=== PATIENT | female | born 1990 | race Two or more races ===

== ENCOUNTER 2024-02-17 08:31 | Outpatient (RCR) | payer MEDICAID, SELFPAY ==
[2024-01-23 08:37] VITALS: BP 128/84; PULSE 65; RESP 18; TEMP 36.7; O2SAT 98; BMI 32.5
[2024-01-23] MEDS: IMMUNE GLOB GA CA IV (09:45)
[2024-01-23] MEDS: [UNRECOGNIZED DRUG - OTHER] IV (09:45)
[2024-01-23] MEDS: ACETAMINOPHEN 325 MG TABLET 650 MG PO (09:51)
[2024-01-23 13:44] VITALS: BP 146/95; PULSE 85; RESP 16; TEMP 36.2; O2SAT 98
[2024-02-17 09:03] VITALS: BMI 32.4
[2024-02-17 09:07] VITALS: BP 138/72; PULSE 67; RESP 18; TEMP 36.3; O2SAT 99
[2024-02-17] MEDS: ACETAMINOPHEN 325 MG TABLET 650 MG PO (09:17)
[2024-02-17] MEDS: [UNRECOGNIZED DRUG - OTHER] IV (09:18)
[2024-02-17] MEDS: IMMUNE GLOB GA CA IV (09:18)
[2024-02-17 14:20] VITALS: BP 119/62; PULSE 68; RESP 18; TEMP 36.6; O2SAT 99
== END 2024-02-21 23:59 | disposition home or self-care (01) ==
LOC: SFLEX 08:31
PROVIDERS: PCP Family Medicine; Referring Provider Family Medicine; Visit Provider Family Medicine
PROC: (CPT 96365; principal; 2024-01-23 08:00)
DX: D89.3 Immune reconstitution syndrome (principal); E55.9 Vitamin D deficiency, unspecified
CPT/HCPCS: 96365; 96366; J1568; A9270

== ENCOUNTER 2024-03-09 07:50 | Outpatient (RCR) | payer MEDICAID, SELFPAY ==
[2024-03-09 07:50] VITALS: BP 137/85; PULSE 69; RESP 18; TEMP 36.2; O2SAT 100; BMI 32.3
[2024-03-09] MEDS: IMMUNE GLOB GA CA IV (08:51)
[2024-03-09] MEDS: [UNRECOGNIZED DRUG - OTHER] IV (08:51)
[2024-03-09 12:30] VITALS: BP 119/72; PULSE 61; RESP 17; TEMP 36.5; O2SAT 100
== END 2024-03-23 23:59 | disposition home or self-care (01) ==
LOC: SFLEX 07:50
PROVIDERS: PCP Family Medicine; Referring Provider Family Medicine; Visit Provider Family Medicine
PROC: (CPT 96365; principal; 2024-03-09 08:00)
DX: D83.9 Common variable immunodeficiency, unspecified (principal); E55.9 Vitamin D deficiency, unspecified; E66.09 Other obesity due to excess calories
CPT/HCPCS: 96365; 96366; J1568

== ENCOUNTER 2024-04-20 09:00 | Outpatient (RCR) | payer MEDICAID, SELFPAY ==
[2024-03-30 09:03] VITALS: BP 150/90; PULSE 85; RESP 14; TEMP 36.2; O2SAT 99; BMI 32.4
[2024-03-30] MEDS: [UNRECOGNIZED DRUG - OTHER] IV (09:36)
[2024-03-30] MEDS: IMMUNE GLOB GA CA IV (09:36)
[2024-03-30 13:15] VITALS: BP 115/62; PULSE 77; RESP 12; TEMP 36.4; O2SAT 99
[2024-04-20 09:40] VITALS: BP 153/99; PULSE 81; RESP 12; TEMP 36.2; O2SAT 97; BMI 32.8
[2024-04-20] MEDS: IMMUNE GLOB GA CA IV (09:49)
[2024-04-20] MEDS: [UNRECOGNIZED DRUG - OTHER] IV (09:49)
[2024-04-20] MEDS: ACETAMINOPHEN 325 MG TABLET 650 MG PO (11:39)
[2024-04-20 13:30] VITALS: BP 149/89; PULSE 73; RESP 14; TEMP 36.5; O2SAT 98
== END 2024-04-20 23:59 | disposition home or self-care (01) ==
LOC: SFLEX 09:00
PROVIDERS: PCP Family Medicine; Referring Provider Family Medicine; Visit Provider Family Medicine
PROC: (CPT 96365; principal; 2024-03-30 08:30)
DX: D83.9 Common variable immunodeficiency, unspecified (principal); Z98.84 Bariatric surgery status
CPT/HCPCS: 96365; 96366; J1568; A9270

== ENCOUNTER 2024-05-11 08:39 | Outpatient (RCR) | payer MEDICAID, SELFPAY ==
[2024-05-11 09:20] VITALS: BP 129/74; PULSE 69; RESP 14; TEMP 36.5; O2SAT 99; BMI 32.1
[2024-05-11] MEDS: [UNRECOGNIZED DRUG - OTHER] IV (10:49)
[2024-05-11] MEDS: IMMUNE GLOB GA CA IV (10:49)
[2024-05-11] MEDS: ACETAMINOPHEN 325 MG TABLET 650 MG PO (10:59)
[2024-05-11 14:34] VITALS: BP 117/66; PULSE 64; RESP 14; TEMP 37.1; O2SAT 100
== END 2024-05-21 23:59 | disposition home or self-care (01) ==
LOC: SFLEX 08:39
PROVIDERS: PCP Family Medicine; Referring Provider Family Medicine; Visit Provider Family Medicine
PROC: (CPT 96365; principal; 2024-05-11 08:00)
CPT/HCPCS: 96365; 96366; J1568; A9270

== ENCOUNTER 2024-06-01 08:03 | Outpatient (RCR) | payer MEDICAID, SELFPAY ==
[2024-06-01 08:38] VITALS: BP 137/103; PULSE 79; RESP 15; TEMP 36.2; O2SAT 97; BMI 32.4
[2024-06-01] MEDS: [UNRECOGNIZED DRUG - OTHER] IV (08:38)
[2024-06-01] MEDS: IMMUNE GLOB GA CA IV (08:38)
[2024-06-01] MEDS: ACETAMINOPHEN 325 MG TABLET 650 MG PO (08:41)
[2024-06-01 12:45] VITALS: BP 113/60; PULSE 61; RESP 14; TEMP 36.5; O2SAT 98
== END 2024-06-20 23:59 | disposition home or self-care (01) ==
LOC: SFLEX 08:03
PROVIDERS: PCP Family Medicine; Referring Provider Family Medicine; Visit Provider Family Medicine
PROC: (CPT 96365; principal; 2024-06-01 08:00)
DX: D83.9 Common variable immunodeficiency, unspecified (principal)
CPT/HCPCS: 96365; 96366; J1568; A9270

== ENCOUNTER 2024-07-13 08:45 | Outpatient (RCR) | payer MEDICAID, SELFPAY ==
[2024-06-22 09:17] VITALS: BP 127/72; PULSE 72; RESP 18; TEMP 36.1; O2SAT 98
[2024-06-22] MEDS: IMMUNE GLOB GA CA IV (09:29)
[2024-06-22] MEDS: [UNRECOGNIZED DRUG - OTHER] IV (09:29)
[2024-06-22 09:54] VITALS: BMI 29.9
[2024-06-22 13:10] VITALS: BP 134/67; PULSE 73; RESP 18; TEMP 36.4; O2SAT 98
[2024-07-13 08:45] VITALS: BP 130/72; PULSE 71; RESP 18; TEMP 36.3; O2SAT 98; BMI 32.1
[2024-07-13] MEDS: IMMUNE GLOB GA CA IV (09:22)
[2024-07-13] MEDS: [UNRECOGNIZED DRUG - OTHER] IV (09:22)
[2024-07-13 13:20] VITALS: BP 136/84; PULSE 69; RESP 18; TEMP 36.2; O2SAT 99
--- NOTE | 2024-07-13 13:26 | SUR.OPER ---
Ate lunch without any issues.
== END 2024-07-21 23:59 | disposition home or self-care (01) ==
LOC: SFLEX 08:45
PROVIDERS: PCP Family Medicine; Referring Provider Family Medicine; Visit Provider Family Medicine
PROC: (CPT 96365; principal; 2024-06-22 08:00)
DX: D83.9 Common variable immunodeficiency, unspecified (principal)
CPT/HCPCS: 96365; 96366; J1561

== ENCOUNTER 2024-08-03 08:15 | Outpatient (RCR) | payer MEDICAID, SELFPAY ==
[2024-08-03 08:35] VITALS: BP 129/74; PULSE 66; RESP 16; TEMP 36.3; O2SAT 98; BMI 32.9
[2024-08-03] MEDS: [UNRECOGNIZED DRUG - OTHER] IV (09:32)
[2024-08-03] MEDS: IMMUNE GLOB GA CA IV (09:32)
[2024-08-03 12:55] VITALS: BP 118/72; PULSE 60; RESP 12; TEMP 36.8; O2SAT 100
== END 2024-08-20 23:59 | disposition home or self-care (01) ==
LOC: SFLEX 08:15
PROVIDERS: PCP Family Medicine; Referring Provider Family Medicine; Visit Provider Family Medicine
PROC: (CPT 96365; principal; 2024-08-03 08:00)
DX: D83.9 Common variable immunodeficiency, unspecified (principal)
CPT/HCPCS: 96365; 96366; J1561

== ENCOUNTER → 2024-08-27 | Outpatient (CLI) | payer MEDICAID, SELFPAY ==
[2024-08-27 08:30] VITALS: BP 119/75; PULSE 77; RESP 18; TEMP 36.4; O2SAT 99; BMI 32.4
[2024-08-27] MEDS: [UNRECOGNIZED DRUG - OTHER] IV (08:49)
[2024-08-27] MEDS: IMMUNE GLOB GA CA IV (08:49)
[2024-08-27 13:25] VITALS: BP 121/77; PULSE 69; RESP 18; TEMP 36.9; O2SAT 99
== END | disposition home or self-care (01) ==
PROVIDERS: PCP Family Medicine; Referring Provider Family Medicine; Visit Provider Family Medicine
PROC: (CPT 96365; principal; 2024-08-27 08:00)
DX: D83.9 Common variable immunodeficiency, unspecified (principal); Z71.82 Exercise counseling; Z71.3 Dietary counseling and surveillance
CPT/HCPCS: 96365; 96366; J1561

== ENCOUNTER 2024-10-12 08:30 | Outpatient (RCR) | payer MEDICAID, SELFPAY ==
[2024-09-21 09:00] VITALS: BP 123/66; PULSE 77; RESP 18; TEMP 36.3; O2SAT 98; BMI 31.9
[2024-09-21] MEDS: [UNRECOGNIZED DRUG - OTHER] IV (09:52)
[2024-09-21] MEDS: IMMUNE GLOB GA CA IV (09:52)
[2024-09-21 13:50] VITALS: BP 106/67; PULSE 67; RESP 18; TEMP 36.6; O2SAT 98
[2024-10-12 08:56] VITALS: BP 119/83; PULSE 78; RESP 18; TEMP 36.8; O2SAT 98; BMI 31.7
[2024-10-12] MEDS: [UNRECOGNIZED DRUG - OTHER] IV (09:05)
[2024-10-12] MEDS: IMMUNE GLOB GA CA IV (09:05)
[2024-10-12] MEDS: ACETAMINOPHEN 325 MG TABLET 650 MG PO (11:44)
[2024-10-12 13:25] VITALS: BP 122/73; PULSE 64; RESP 18; TEMP 36.6; O2SAT 99
== END 2024-10-21 23:59 | disposition home or self-care (01) ==
LOC: SFLEX 08:30
PROVIDERS: PCP Family Medicine; Referring Provider Family Medicine; Visit Provider Family Medicine
PROC: (CPT 96365; principal; 2024-09-21 08:00)
DX: D83.9 Common variable immunodeficiency, unspecified (principal)
CPT/HCPCS: 96365; 96366; J1561; A9270

== ENCOUNTER 2024-10-27 18:23 | Emergency (ER) | payer MEDICAID, SELFPAY ==
[2024-10-27 18:24] VITALS: BMI 31.7
[2024-10-27 19:01] VITALS: BP 128/84; PULSE 87; RESP 18; TEMP 36.9; O2SAT 97
[2024-10-27 20:02] LABS: Basophils # (Auto) 0.0 Thou/mm3 (0.0-0.2); Basophils % (Auto) 0 % (0-2.5); Eosinophils # (Auto) 0.0 Thou/mm3 (0.0-0.5); Eosinophils % (Auto) 0 % (0-10); Hematocrit 36.1 % (36.0-46.0); Hemoglobin 11.3 g/dL (12.0-16.0); Immature Granulocytes Auto 0.01 Thou/mm3 (0.00-0.00); Lymphocytes # (Auto) 1.0 Thou/mm3 (1.0-4.8); Lymphocytes % (Auto) 16 % (10-50); Mean Corpuscular HGB Conc 31.3 g/dl (31.0-37.0); Mean Corpuscular Hemoglobin 22.4 pg (25.0-35.0); Mean Corpuscular Volume 72 fL (80-100); Monocytes # (Auto) 0.4 Thou/mm3 (0.0-0.8); Monocytes % (Auto) 6 % (0-12); Neutrophils # (Auto) 4.8 Thou/mm3 (1.8-7.7); Neutrophils % (Auto) 77 % (37-80); Nucleated Red Blood Cell # 0.00 Thou/mm3 (0.00-0.00); Nucleated Red Blood Cell % 0 /100 WBC (0); Platelet Count 196 Thou/mm3 (140-440); RDW Standard Deviation 41.3 fL (36.4-46.3); Red Blood Count 5.05 Miln/mm3 (4.00-5.20); White Blood Count 6.1 Thou/mm3 (3.6-11.0)
[2024-10-27 20:17] LABS: Alanine Aminotransferase 15 U/L (10-49); Albumin, Serum 4.6 gm/dL (3.5-5.0); Albumin/Globulin Ratio 1.8 (1.2-2.2); Alkaline Phosphatase 74 U/L (46-116); Anion Gap 11 (7-16); Aspartate Amino Transferase 18 U/L (0-34); BUN/Creatinine Ratio 14 Ratio (12-20); Bilirubin,Total 0.9 mg/dL (0.3-1.2); Blood Urea Nitrogen 10 mg/dL (9-23); Calcium 9.3 mg/dL (8.3-10.6); Calcium (Corrected) 9.3 mg/dL (8.5-10.1); Carbon Dioxide 23.0 mMol/L (20.0-31.0); Chloride 106 mMol/L (98-107); Creatinine (Component) 0.7 mg/dL (0.6-1.3); Estimated Creatinine Clearance 118.7 mL/min (>60); Globulin 2.5 gm/dL (2.3-3.5); Glucose 92 mg/dL (74-106); Osmolality,Calculated 278 (275-295); Potassium 4.2 mMol/L (3.4-5.1); Sodium 140 mMol/L (136-145); Total Protein 7.1 gm/dL (5.7-8.2); eGFR > 60 See Note
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
[2024-10-28 22:04] LABS: Lipase 32 U/L (12-53)
== END 2024-10-27 21:07 | disposition home or self-care (01) ==
PROVIDERS: Nurse Practitioner Family; Emergency Provider Emergency Medicine
DX: Z04.1 Encounter for examination and observation following transport accident (principal); Z3A.01 Less than 8 weeks gestation of pregnancy; M54.6 Pain in thoracic spine
CPT/HCPCS: 36415; 80053; 81001; 81025; 83690; 85025; 99283

== ENCOUNTER 2024-11-28 17:41 | Emergency (ER) | payer MEDICAID, SELFPAY ==
[2024-11-28 17:42] VITALS: BMI 33.5
[2024-11-28 17:52] VITALS: BP 141/85; PULSE 96; RESP 18; TEMP 36.6; O2SAT 96
--- NOTE | 2024-11-28 17:54 | EKG_ITS ---
[facility] Test Date: 2024-11-28 Pat Name: JESSICA WALSH Department: Room: - Gender: Female [employer] Spr[employer]: : 1990 Requested By: Danny Sequeira Order Number: [id number] Reading MD: Danny Sequeira Measurements Intervals [place] Rate: 87 P: 61 WA: 133 QRS: 6 QRSD: 89 T: 43 QT: 354 QTc: 427 Interpretive Statements SINUS RHYTHM POSSIBLE LEFT VENTRICULAR HYPERTROPHY [VOLTAGE CRITERIA PLUS LAE OR QRS WIDENING] Compared to ECG 03/22/2019 22:53:43 No significant changes /store/S0/[id number]/[id number].pdf
--- NOTE | 2024-11-28 18:18 | PD.EDRME ---
Rapid Medical Screening Exam RME Arrival date/time: 11/28/24 17:41 Chief Complaint: Dizziness Time Seen by Provider: 11/28/24 18:14 Vital signs: Vital Signs Temperature 97.8 F 11/28/24 17:52 Pulse Rate 96 11/28/24 17:52 Respiratory Rate 18 11/28/24 17:52 Blood Pressure 141/85 H 11/28/24 17:52 Pulse Oximetry (%) 96 11/28/24 17:52 Oxygen Delivery Method Room Air 11/28/24 17:52 RME Narrative: Lightheadedness with syncopal episode today. Patient states she is 11 weeks OB. Hx of common variable immunodeficiency disease. I need IVIG.
--- NOTE | 2024-11-28 18:20 | XR_ITS ---
Examination: Complete OB ultrasound, less than 14 weeks, transabdominal Date and time of exam: November 28, 2024, 1920 hours INDICATIONS: Patient fainted today Technique: Obstetrical ultrasound images less than 14 weeks performed via transabdominal imaging Findings: A normal shaped single intrauterine gestation is present in the uterus. CRL 5.5 cm corresponds to 12 weeks 1 day gestational age. Cardiac motion 152 bpm, adjacent subchorionic hemorrhage 16 x 14 x 15 mm Ultrasonographic survey of visible structures unremarkable. Amniotic fluid volume appears appropriate for this estimated gestational age. Right ovary 2.8 cm arterial flow 15 mm follicular cyst Left ovary 3.1 cm arterial flow 17 mm follicular cyst. IMPRESSION: Viable intrauterine gestation 12 weeks 1 day, recommend short-term follow-up given the patient's subchorionic hemorrhage
[2024-11-28 18:43] LABS: Basophils # (Auto) 0.0 Thou/mm3 (0.0-0.2); Basophils % (Auto) 0 % (0-2.5); Eosinophils # (Auto) 0.0 Thou/mm3 (0.0-0.5); Eosinophils % (Auto) 0 % (0-10); Hematocrit 33.4 % (36.0-46.0); Hemoglobin 10.4 g/dL (12.0-16.0); Immature Granulocytes Auto 0.02 Thou/mm3 (0.00-0.00); Lymphocytes # (Auto) 1.1 Thou/mm3 (1.0-4.8); Lymphocytes % (Auto) 14 % (10-50); Mean Corpuscular HGB Conc 31.1 g/dl (31.0-37.0); Mean Corpuscular Hemoglobin 22.7 pg (25.0-35.0); Mean Corpuscular Volume 73 fL (80-100); Monocytes # (Auto) 0.4 Thou/mm3 (0.0-0.8); Monocytes % (Auto) 5 % (0-12); Neutrophils # (Auto) 6.0 Thou/mm3 (1.8-7.7); Neutrophils % (Auto) 80 % (37-80); Nucleated Red Blood Cell # 0.00 Thou/mm3 (0.00-0.00); Nucleated Red Blood Cell % 0 /100 WBC (0); Platelet Count 177 Thou/mm3 (140-440); RDW Standard Deviation 42.8 fL (36.4-46.3); Red Blood Count 4.59 Miln/mm3 (4.00-5.20); White Blood Count 7.5 Thou/mm3 (3.6-11.0)
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
--- NOTE | 2024-11-28 19:05 | XR_ITS ---
Examination: CT brain head without contrast. 2-D sagittal coronal reconstructions Date and time of exam: November 28, 2024, 2024 hours INDICATIONS: Headache dizziness beginning today CTDI: vol (mGy): 53.5 DLP: (mGycm): 762 Technique: Multiple CT axial sections of the brain have been obtained, 5 mm slice thickness. Contrast has not been administered. 2-D sagittal, coronal reconstructions have been obtained Low dose protocols were performed. One or more of the following dose reduction techniques were used; automated exposure control, adjustment of the mA and/or KV according to patient size, use of iterative reconstruction technique. Findings: No significant ventricular enlargement. Intra-axial or extra-axial hemorrhage density is not seen. No mass effect or midline shift Basal cisterns are not remarkable. Fourth ventricle is midline. Cranial vault intact. Impression: Negative for acute hemorrhage, mass effect or midline shift Advise clinical correlation and follow-up accordingly
--- NOTE | 2024-11-28 19:05 | XR_ITS ---
EXAMINATION: PA chest single view TECHNIQUE: Upright PA chest single view Date and time: November 28, 2024, 2039 hours, comparison March 22, 2019 INDICATIONS: Syncopal episode today FINDINGS: Significant pneumonia left base obscuring detail left hemidiaphragm. Normal heart size Mild vascular congestion IMPRESSION: Significant left base pneumonia
[2024-11-28 19:15] LABS: Collection Type, Urine Clean Catch
[2024-11-28 19:33] LABS: Alanine Aminotransferase 11 U/L (10-49); Albumin, Serum 4.2 gm/dL (3.5-5.0); Albumin/Globulin Ratio 2.2 (1.2-2.2); Alkaline Phosphatase 59 U/L (46-116); Anion Gap 8 (7-16); Aspartate Amino Transferase 12 U/L (0-34); BUN/Creatinine Ratio 17 Ratio (12-20); Bilirubin,Total 0.7 mg/dL (0.3-1.2); Blood Urea Nitrogen 10 mg/dL (9-23); Calcium 9.0 mg/dL (8.3-10.6); Calcium (Corrected) 9.0 mg/dL (8.5-10.1); Carbon Dioxide 24.8 mMol/L (20.0-31.0); Chloride 108 mMol/L (98-107); Creatinine (Component) 0.6 mg/dL (0.6-1.3); Estimated Creatinine Clearance 137.1 mL/min (>60); Globulin 1.9 gm/dL (2.3-3.5); Glucose 88 mg/dL (74-106); Osmolality,Calculated 279 (275-295); Potassium 3.5 mMol/L (3.4-5.1); Sodium 141 mMol/L (136-145); Total Protein 6.1 gm/dL (5.7-8.2); Troponin I < 0.020 ng/mL (0.0-0.045); eGFR > 60 See Note
[2024-11-28 19:37] LABS: Amphetamine/Methamp Scrn,U Negative (Negative); Barbiturate Screen,Urine Negative (Negative); Benzodiazepines Screen,Urine Negative (Negative); Benzoylecgonine Screen, Ur Negative (Negative); Fentanyl Screen,Urine Negative (Negative); Opiate Screen,Urine Negative (Negative); THC Screen,Urine Negative (Negative)
[2024-11-28 19:39] LABS: Bacteria,Urine 2+; Bilirubin,Urine Negative (Negative); Blood,Urine Negative (Negative); Clarity,Urine Clear (Clear/Hazy); Color,Urine Yellow (Lt Yel-Yel); Glucose, Urine Negative (Negative); Ketones,Urine Negative (Negative); Leukocyte Esterase,Urine Positive (Negative); Nitrite,Urine Negative (Negative); PH,Urine 6.0 (5.0-7.0); Protein,Urine 1+ (Neg - Trace); RBC,Urine 4 /hpf (0-3); Specific Gravity,Urine 1.036 (1.001-1.035); Squamous Epithelial Cell,Urine 9 /hpf (0-5); Urobilinogen,Urine Negative mg/dL (0.0-1.0); WBC,Urine 11 /hpf (0-5)
[2024-11-28 20:03] LABS: Lactate (Lactic Acid) 0.8 mMol/L (0.4-2.0)
[2024-11-28 20:04] LABS: Base Excess, Venous -2 (-3-3); O2 Saturation, Venous 82 % (96-97); PCO2, Venous 35 mmHg (36-56); PO2, Venous 46 mmHg (15-58); pH, Venous 7.41 (7.33-7.66)
[2024-11-28 20:18] LABS: D-Dimer < 250 ng/mL (<600)
[2024-11-28 20:23] LABS: Alcohol, Blood Medical < 3.0 mg/dL (0-10.0); Bilirubin,Direct 0.2 mg/dL (0.0-0.3); Magnesium 1.7 mg/dL (1.6-2.6)
[2024-11-28 20:28] LABS: Culture Indicated,Urine Yes
[2024-11-28 20:30] LABS: Sed Rate (ESR) 9 mm/hr (0-20)
[2024-11-28 20:32] LABS: B-Type Natriuretic Peptide < 20 pg/mL (0-100)
[2024-11-28 20:41] LABS: C-Reactive Protein 1.5 mg/dL (0.0-0.9); Lipase 30 U/L (12-53); Procalcitonin 0.07 ng/ml (0.0-0.49); Thyroid Stimulating Hormone 0.49 uIU/mL (0.55-4.78)
[2024-11-28 21:15] LABS: Beta Hydroxybutyrate 0.1 mmol/L (<0.6)
[2024-11-28] MEDS: SODIUM CHLORIDE 0.9% 1000 ML 1,000 ML 999 ML IV (21:44)
[2024-11-28] MEDS: ONDANSETRON INJ 2 MG/ML INJ 2 ML 4 MG IVP (21:44)
[2024-11-28 22:52] LABS: Influenza A Ag Negative; Influenza B Ag Negative
[2024-11-28] MEDS: AZITHROMYCIN 250 MG TABLET 500 MG PO (23:01)
[2024-11-28] MEDS: cefTRIAXone/D5w 1gm IV premix 1 GM/50 ML BAG IV (23:01)
[2024-11-28 23:26] VITALS: BP 135/89; PULSE 85; RESP 14; TEMP 37; O2SAT 99
== END 2024-11-28 23:26 | disposition home or self-care (01) ==
PROVIDERS: Physician Assistant; Emergency Provider Emergency Medicine; PCP Family Medicine
DX: O99.511 Diseases of the respiratory system complicating pregnancy, first trimester (principal); J18.9 Pneumonia, unspecified organism; O23.41 Unspecified infection of urinary tract in pregnancy, first trimester; N39.0 Urinary tract infection, site not specified; O26.891 Other specified pregnancy related conditions, first trimester; E86.0 Dehydration; R51.9 Headache, unspecified; R42 Dizziness and giddiness; R94.31 Abnormal electrocardiogram [ECG] [EKG]; Z3A.12 12 weeks gestation of pregnancy
CPT/HCPCS: 36415; 70450; 71045; 76801; 80053; 80307; 80320; 81001; 82010; 82248; 82803; 83605; 83690; 83735; 83880; 84145; 84443; 84484; 84702; 85025; 85379; 85652; 86140; 87077; 87086; 87186; 87502; 87811; 93005; 96361; 96374; 99285; J0696; J2405; J7030; A9270; G0480

== ENCOUNTER 2024-11-30 10:13 | Outpatient (AMB) | payer MEDICAID, SELFPAY ==
[2024-11-30 10:45] VITALS: BP 123/78; PULSE 67; RESP 14; TEMP 36.5; O2SAT 100; BMI 33.7
--- NOTE | 2024-11-30 10:45 | OBCLNT_ITS ---
Vital Signs 11/30/24 10:45 Height 1.6 m Height Method Stated Weight 86.409 kg Weight Measurement Method Standing Scale BMI 33.7 BP 123/78 Blood Pressure Source Automatic Cuff Blood Pressure Location Left Upper Arm Position Sitting Respiration 14 Pulse 67 Pulse Source Monitor Temp 97.7 F Temp Source Oral Pulse Oximetry (%) 100 Oxygen Delivery Method Room Air Allergies/Home Meds Allergies & Medications Allergies acyclovir Allergy (Severe, Verified 11/30/24 10:46) Swelling of Lip/Tongue/Throat doxycycline Allergy (Severe, Verified 11/30/24 10:46) Dizziness ibuprofen Allergy (Severe, Verified 11/30/24 10:46) Abdominal Pain whey Allergy (Severe, Verified 11/30/24 10:46) Swelling of Lip/Tongue/Throat Medication Reconciliation valacyclovir 1 gram tablet 1,000 mg PO BID 08/05/23 [History Confirmed 11/30/24] pantoprazole 40 mg tablet,delayed release 40 mg PO QDAY 10/07/23 [History Confirmed 11/02/24] azithromycin 500 mg tablet (Zithromax TRI-YOHANNES) 500 mg PO QDAY 3 days #3 tabs 10/15 [Rx Confirmed 11/30/24] cefdinir 300 mg capsule 300 mg PO BID #14 caps 11/28/24 [Rx Confirmed 11/30/24] ondansetron 4 mg disintegrating tablet 4 mg PO TID PRN nausea and vomiting 30 days #10 tabs 11/28/24 [Rx Confirmed 11/30/24] vits no.126-ferrous fum 28 mg iron-folic acid 800 mcg tablet (Classic ) 1 tab PO DAILY 90 days #90 tabs 11/30/24 [Rx] Intake Visit Data Collection New Patient or Established: Established Patient (seen at [facility] within 3 years) Reason for Visit:: initial care Seen by Clinical Staff ONLY (RN/MA): No Do You Feel Safe at Home: Yes Authorities Contacted: N/A PCP or OBGYN visit in last 3 months: Yes Hx Now: Yes Are you currently on any form of Control: No Last menstrual period: 09/09/24 Pain Present Currently: No Pain Scale Used: Krause-Wellington/Numerical Pain scale:: 0 Smoking Status Smoking Status: Never smoker Questionnaires Covid-19 Vaccine Questionnaire Has patient been vacinated for Covid-19 Have you been vacinated for Covid-19: No PHQ-9 PHQ-2 Over the last 2 weeks, how often have you been bothered by any of the following problems? 1. Little interest or pleasure in doing things: not at all 2. Feeling down, depressed, or hopeless: not at all Total score: 0 PHQ-9 3. Trouble falling or staying asleep, or sleeping too much: Not at all 4. Feeling tired or having little energy: Not at all 5. Poor appetite or overeating: Not at all 6. Feeling bad about yourself - or that you are a failure or have let yourself or your family down: Not at all 7. Trouble concentrating on things, such as reading the newspaper or watching television: Not at all 8. Moving or speaking so slowly that other people could have noticed? - Or the opposite - being so fidgety or restless that you have been moving around a lot more than usual: not at all 9. Thoughts that you would be better off or of hurting yourself in some way: Not at all Total score: 0 Source: Developed by Drs. Davis Lewis, Denisha Arthur, Shubham Hendricks and colleagues, with an educational kymberly from [employer]. Depression screen completed yes Social History Living Situation History Lives With: Family Housing: House Tobacco History Smoking Status: Never smoker Second Hand Smoke Exposure: No Alcohol History Alcohol Intake: Never Domestic Abuse History Do You Feel Safe at Home: Yes History of Present Illness HPI Narrative ? Years old G?P?at gestational age?based on last menstrual period of dated?. No complaints so far Here for first visit LPS many years ago LMP 09/09/2024 Ultrasound today c/w 12,2 weeks based on CRL IMP : medical problems h/o cholestasis and chronic hypertension and Immune deficiency disorder and gets Immunoglobulin infusions every 3 weeks H/O HSV on Valtrex Allergies see list Surgical history social history RN FIELD: Past Medical History Past Medical History: No Hx Neurological Disorders, No Hx Cardiac Disorders, No Hx Cancer, Yes Hx Blood Disorders, Yes Hx Anemia, Yes Hx Gastrointestinal Disorders, No Hx Renal Disease, No Hx Diabetes Mellitus Type 1, No Hx Diabetes Mellitus Type 2 and No Psychiatric Problems Other Relevant History: h/o HSV and immune deficiency H/o cholestasis H/O hypertension OB Initial Visit OB Flowsheet OB Flowsheet Initial Weight: Not Recorded Date -?-?-?-?-?-?-?-?-?-?-?-?- EGA Weight BP Alb Glu CTX Pres Fundal ht FHR Mov Dilation Station Effacement Hx Notes Visit Note 11/30/24 -?-?-?-?-?-?-?-?-?-?-?-?- 11w 5d 86.409 kg 123/78 Menstrual History Menstrual reliability: definite Flow: normal Menstrual regularity: regular Monthly: Yes Age at menarche: 12 On control pills at conception: No Associated symptoms (LMP): Reports fatigue OB History : 5 Para: 2 Hx Total # of Abortions (Spontaneous & Elective): 2 # of Living Children: 2 Delivery History 1st : Child's name: GAIL date: 10/05/14 sex: female Gestational age at delivery (weeks): 38 Delivery type: vaginal Delivery complications: NONE History of depression before or after : No 2nd : Child's name: ANITA date: 08/10/18 sex: male Gestational age at delivery (weeks): 38 Delivery type: vaginal History of depression before or after : No Infection History & Risk Evaluation History of STDs: none Patient or partner has history of Genital Herpes: Yes Genetic Screening & History Genetic Screening/Teratology Counseling - Includes patient, baby's father, or anyone in either family with: 1. Patient's age 35 years or older as of estimated date of delivery: No 2. Thalassemia (Finnish, Canadian, Mediterranean, or Background); MCV less than 80: No 3. Neural Tube Defect (Meningomyelocele, Spina Bifida, or Anencephaly): No 4. Congenital Heart Defect: No 5. Down Syndrome: No 6. Carlitos-Sachs (Ashkenazi Hinduism, Cajun, Indonesian German): No 7. Kumar Disease (Ashkenazi Hinduism): No 8. Familial Dysautonomia (Ashkenazi Hinduism): No 9. Sickle Cell Disease or Trait (): No 10. Hemophilia or other blood disorders: No 11. Muscular Dystrophy: No 12. Cystic Fibrosis: No 13. Cherokee's Chorea: No 14. Mental Retardation/Autism: No 15. Other inherited genetic or chromosomal disorder: No 16. Maternal Metabolic Disorder (EG,TYPE 1 Diabetes, PKU): No 17. Patient or baby's father had a child with defects not listed above: No 18. Recurrent loss or a stillbirth: No 19. Medications (including supplements, vitamins, herbs or otc drugs)/illicit/recreational drugs/alcohol since last menstrual period: No 20. Any other: No Infection History 1. Live with someone with TB or exposed to TB: No 2. Rash or viral illness since last menstrual period: No 3. Hepatitis B,C: No Other (see comments) Source: [employer] Review of Systems Review of Systems Narrative Review of Systems: Systems Reviewed: All systems reviewed, normal except as documented Constitutional Constitutional: Reports fatigue Endocrine Endocrine: Reports fatigue Exam Narrative Physical exam: Alert and oriented x 3 no shortness of breath Pain no chest pain no palpitations Chest clear bilaterally no additional sounds, no wheezing no rales CVS regular rate and rhythm No CVAT Abdomen nontender, normal bowel sounds No guarding no rigidity No hernias Size equal to dates uterus non tender non tender FHR is present on US Office Procedures [facility] Clinic LOC & Office Proc's Nursing/Assessment Patient Status: Established Patient OB Clinic Nursing Assessment: Medication Reconciliation, Update PMH in EMR and Vital Signs OB Clinic Coordination of Care: Complex Care and Chronic Disease 1-5, Consent,records obtained, informed consent, Education Simp Pt/Fam, 1 Ins Authorization, Lab and Imaging orders, Results/Orders obtained and Staff clarify orders Special Needs: Heart tones Established Patient Charge Established Patient Point Assignment: 150 Established Patient Point Charge: EP Level 4 (120-155) Assessment & Plan Diagnosis / Problem List (1) Chronic hypertension in : Status: Acute (2) : Status: Acute Plan: monitor not acute problem (3) Common variable immunodeficiency: Status: Acute (4) High risk case management patient in first trimester: Status: Acute Plan Ob initial labs and also CMP and also NIPT and called in PNVitamins Additional Plan refer to MFM next visit had a 23 week loss last Lupus anticoagulant panel ordered as well /valtrex from 32 weeks for suppressive therapy Follow Up: 4 Weeks
== END 2024-11-30 11:15 | disposition home or self-care (01) ==
LOC: HODSOBC 10:13
PROVIDERS: PCP Family Medicine; Referring Provider Family Medicine; Supervising Provider Obstetrics & Gynecology; Visit Provider Obstetrics & Gynecology
DX: O09.891 Supervision of other high risk pregnancies, first trimester (principal); O10.911 Unspecified pre-existing hypertension complicating pregnancy, first trimester; O99.111 Other diseases of the blood and blood-forming organs and certain disorders involving the immune mechanism complicating pregnancy, first trimester; D83.9 Common variable immunodeficiency, unspecified; Z3A.11 11 weeks gestation of pregnancy; Z79.899 Other long term (current) drug therapy; Z88.6 Allergy status to analgesic agent; Z91.018 Allergy to other foods; Z91.09 Other allergy status, other than to drugs and biological substances
CPT/HCPCS: 99214; G0463

== ENCOUNTER 2025-01-07 21:21 | Emergency (ER) | payer MEDICAID, SELFPAY ==
[2025-01-07 21:25] VITALS: BMI 32.5
[2025-01-07 21:36] VITALS: BP 90/48; PULSE 56; RESP 26; TEMP 36.4; O2SAT 100
--- NOTE | 2025-01-07 21:36 | XR_ITS ---
Examination: Abdomen sonogram, Limited Date and time of exam: December, 2145 hours INDICATIONS: Pelvic pain today, 18-week by history Technique: Real-time lcuas scale transabdominal sonographic images of the upper abdomen obtained. Findings: Multiple gallstones Gallbladder wall 0.38 cm no edema Common bile duct enlarged 0.9 cm Pancreatic head 2.7 cm Liver 19 cm fatty infiltration Normal hepatopetal portal venous flow Patent IVC IMPRESSION: Cholelithiasis Abnormally enlarged common bile duct 0.9 cm, consider MRCP follow-up to exclude common bile duct stones
--- NOTE | 2025-01-07 21:36 | XR_ITS ---
Examination: Complete OB ultrasound greater than 14 weeks Date and time of exam: January 07, 2025, 2152 hours INDICATIONS: Right upper abdomen and back pain pelvic pain today Findings: Viable intrauterine single fetus with single amniotic sac presentation cephalic Cardiac motion 137 bpm Placenta anterior grade 2 Umbilical cord insertion seen Amniotic fluid volume adequate spine posterior Cervix 3.7 cm Right ovary 3.2 cm arterial flow Left ovary 2.7 cm arterial flow. Composite estimated gestational age based on BPD, head circumference, abdominal circumference, femur length is 17 weeks 2 days Estimated weight 191 g. Survey of intracranial anatomy, spinal anatomy, abdominal anatomy, four-chamber heart performed with no abnormalities identified. Impression: Viable intrauterine gestation cephalic presentation.
--- NOTE | 2025-01-07 21:37 | PD.EDRME ---
Rapid Medical Screening Exam RME Arrival date/time: 01/07/25 21:21 This is a case of 34-year-old female who came into the emergency room due to upper abdominal pain and pelvic pain today no vaginal bleeding no vaginal discharge patient is 18 weeks 3 para 2 with regular checkup Chief Complaint: Abdominal Pain Time Seen by Provider: 01/07/25 21:25 Vital signs: Vital Signs Temperature 97.5 F 01/07/25 21:36 Pulse Rate 56 L 01/07/25 21:36 Respiratory Rate 26 H 01/07/25 21:36 Blood Pressure 90/48 L 01/07/25 21:36 Pulse Oximetry (%) 100 01/07/25 21:36 Oxygen Delivery Method Room Air 01/07/25 21:36 Exam: Moderate tenderness on the right upper quadrant and pelvic area no guarding no rebound no rigidity Clinical Impression: Abdominal pain in
[2025-01-07 22:01] LABS: Basophils # (Auto) 0.0 Thou/mm3 (0.0-0.2); Basophils % (Auto) 0 % (0-2.5); Eosinophils # (Auto) 0.0 Thou/mm3 (0.0-0.5); Eosinophils % (Auto) 1 % (0-10); Hematocrit 29.3 % (36.0-46.0); Hemoglobin 9.2 g/dL (12.0-16.0); Immature Granulocytes Auto 0.01 Thou/mm3 (0.00-0.00); Lymphocytes # (Auto) 0.9 Thou/mm3 (1.0-4.8); Lymphocytes % (Auto) 19 % (10-50); Mean Corpuscular HGB Conc 31.4 g/dl (31.0-37.0); Mean Corpuscular Hemoglobin 23.1 pg (25.0-35.0); Mean Corpuscular Volume 74 fL (80-100); Monocytes # (Auto) 0.4 Thou/mm3 (0.0-0.8); Monocytes % (Auto) 8 % (0-12); Neutrophils # (Auto) 3.5 Thou/mm3 (1.8-7.7); Neutrophils % (Auto) 72 % (37-80); Nucleated Red Blood Cell # 0.00 Thou/mm3 (0.00-0.00); Nucleated Red Blood Cell % 0 /100 WBC (0); Platelet Count 173 Thou/mm3 (140-440); RDW Standard Deviation 42.5 fL (36.4-46.3); Red Blood Count 3.98 Miln/mm3 (4.00-5.20); White Blood Count 4.9 Thou/mm3 (3.6-11.0)
--- NOTE | 2025-01-07 22:08 | EDNOTE_ITS ---
ED Abdominal Pain RME/HPI General Chief Complaint: Abdominal Pain Stated complaint: BACK AND ABD PAIN, VOMITING, WEAK, DIZZINESS Time seen by provider: 01/07/25 21:25 Arrival date/time: 01/07/25 21:21 RME / HPI RME / HPI narrative: 01/07/25 21:21 This is a case of 34-year-old female who came into the emergency room due to upper abdominal pain and pelvic pain today no vaginal bleeding no vaginal discharge patient is 18 weeks 3 para [address] Mccollum?s Main ED Evaluation: 34yo female who is ~18 weeks gestation presents to the ED for a chief complaint of right-sided back pain that radiates to her abdomen. Patient states she recently finished a course of antibiotics for UTI. Patient also has pelvic pain. She denies any vomiting, fever, chills, vaginal bleeding, or any other associated symptoms. Patient notes her [employer] is on vacation. Related Data Home Medications ?Medication ?Instructions ?Recorded ?Confirmed valacyclovir 1 gram tablet 1,000 mg PO BID 08/05/23 pantoprazole 40 mg tablet,delayed 40 mg PO QDAY 12/05/24 release Previous Rx's ?Medication ?Instructions ?Recorded cefdinir 300 mg capsule 300 mg PO BID #14 caps 11/28 vits no.126-ferrous fum 1 tab PO DAILY 90 day s #90 tabs 11/30/24 28 mg iron-folic acid 800 mcg tablet (Classic ) cephalexin 500 mg capsule 1,000 mg (2 x 500 mg) PO BID 7 01/07/25 days #28 caps metoclopramide HCl 10 mg tablet 10 mg PO Q6H PRN nause a and 01/07/25 (Reglan) vomiting #20 tabs Allergies Allergy/AdvReac Type Severity Reaction Status Date / Time doxycycline Allergy Severe Dizziness Verified 01/07/25 21:25 ibuprofen Allergy Severe Abdominal Verified 01/07/25 21:25 Pain whey Allergy Severe Swelling Verified 01/07/25 21:25 of Lip/Tongue/Throat Review of Systems Review of Systems Systems Reviewed: All systems reviewed, normal except as documented Past Medical History Past Medical History NEUROLOGIC: Negative Neurological Disorders or Seizures CARDIAC: Negative Cardiac Disorders or Congestive Heart Failure RESPIRATORY: Positive Asthma, Bronchitis and Pneumonia; Negative Chronic Obstructive Pulmonary Disease (COPD), Emphysema, Pulmonary Fibrosis, Cystic Fibrosis, Tuberculosis, Pulmonary Embolism, Pulmonary Edema or Sleep Apnea GASTROINTESTINAL: Positive Gastrointestinal Disorders, Gall Bladder Disease, Hemorrhoids and Gastroesophageal Reflux Disease; Negative Hepatitis, Pancreatitis, Gastrointestinal Bleed, Ulcerative Colitis, Ulcer, Irritable Bowel, Obstructive Bowel, Hiatal Hernia or Obesity GENITOURINARY: Negative Genitourinary Disorders or Renal Disease REPRODUCTIVE: Positive Genital Herpes and Previous Pregnancies; Negative Endometriosis, Pelvic Inflammatory Disease or Uterine Prolapse MUSCULOSKELETAL: Positive Musculoskeletal Disorders; Negative Muscular Dystrophy, Myasthenia Gravis, Marfan's Syndrome, Arthritis, Rheumatoid Arthritis, Osteoporosis, Degenerative Disk Disease, Gout, Scoliosis, Fibromyalgia, Fractures, Degenerative Joint Disease, Osteomyelitis or Poliovirus ENT: Positive Ear Infection ENDOCRINE: Negative Endocrine Disorders, Diabetes Mellitus Type 1 or Diabetes Mellitus Type 2 HEMATOLOGIC: Positive Blood Disorders and Anemia; Negative Leukemia, Hemophilia, Thalassemia, Sickle Cell Disease or Clotting Problems PSYCHO/SOCIAL: Negative Psychiatric Problems, Schizophrenia, Recreational Drug Use, Depression, Anxiety, Behavior Problems, Self-Mutilation, Attention Deficit Disorder, Attention Deficit Hyperactivity Disorder, Depression, Post Traumatic Stress Disorder or Eating Disorder OTHER HISTORY: Positive Autoimmune Disease (common variable immunodeficiency) and Chicken Pox; Negative Hospitalization, Down Syndrome, Autism, Developmental Delay, Shingles, Falls, Blood Transfusions, Anesthesia Reactions, Organ Transplant, Chemotherapy, Radiation Therapy, Hyperbaric Therapy, MRSA, VRSA, Vancomycin-Resistant Enterococci, Human Immunodeficiency Virus (HIV), Measles, Mumps, Rubella (Martiniquais Measles), Pertussis, Clostridium Difficile or Cancer Family History FAMILY HISTORY: Positive Family Cardiac Disorders; Negative Family Psychiatric Problems, Family Respiratory Disorders, Family Gastrointestinal Problems, Family Cancer, Family Surgery or Family Anesthesia Reaction Surgical History SURGICAL: Positive Abdominal Surgery and Gastric Bypass Surgery; Negative Ear Surgery, Section or Organ Transplant Social History SMOKING STATUS: Never smoker SECOND HAND EXPOSURE: No ED Exam Narrative Physical exam: Generally patient is alert in mild distress secondary to pain, heart regular rate and rhythm, lungs clear to auscultation equal bilaterally, abdomen is soft gravid with fundal height just short of the umbilicus but nontender other than mild tenderness to the right upper quadrant with a negative Franklin sign. Musculoskeletal exam showed no costovertebral angle tenderness. Skin is warm and dry. Neurologic exam shows a [place] Coma Scale of 15 without focal motor deficit Course Quality Measures none Orders Category Date Time Status US OB >= 14 weeks Fetus Stat Exams 01/07/25 21:36 Completed US gall bladder Stat Exams 01/07/25 21:36 Completed US renal BI Stat Exams 01/07/25 22:12 Completed ABO/RH Type Stat Lab 01/07/25 21:47 Completed Beta HCG,Quantitative Stat Lab 01/07/25 21:47 Completed CBC Stat Lab 01/07/25 21:47 Completed CMP [Comprehensive Metabolic Panel] Stat Lab 01/07/25 21:47 Completed Lipase Stat Lab 01/07/25 21:47 Completed Urinalysis Stat Lab 01/07/25 22:32 Completed Acetaminophen Tab [Tylenol Tab] Med 01/07/25 23:04 Discontinued 650 mg PO X1 ONE Metoclopramide Inj [Reglan Inj] Med 01/07/25 22:33 Discontinued 10 mg IVP X1 ONE Morphine* Inj Med 01/07/25 22:13 Discontinued 4 mg IVP X1 ONE Sodium Chloride 0.9% 1000 ml [Ns] 1,000 ml Med 01/07/25 23:15 Active IV 999 mls/hr cefTRIAXone/D5w 1gm IV premix [Rocephin/D5w 1gm IV Med 01/07/25 23:36 Active premix] 1 gm in 50 ml IV X1 Vital Signs Vital signs: Vital Signs Temperature 97.5 F 01/07/25 21:36 Pulse Rate 56 L 01/07/25 21:36 Respiratory Rate 26 H 01/07/25 21:36 Blood Pressure 90/48 L 01/07/25 21:36 Pulse Oximetry (%) 100 01/07/25 21:36 Oxygen Delivery Method Room Air 01/07/25 21:36 Abdominal Pain MDM MDM Narrative MDM Narrative:: Scribe Attestation: 01/07/25 Maisha Shafer am scribing for and in the presence of Dr. Mccollum. Urine showed the possibility of infection so the patient received Rocephin 1 g IV. Patient was hydrated with a liter normal saline. Patient was given Reglan 10 mg IV and Tylenol 650 mg p.o. with benefit. Gallbladder ultrasound showed gallstones and a 9 mm common bile duct. Patient does not want to wait for an MRCP. I do not have MRI capability at night. She was told that she will need to return if pain increases or fever develops. She understands the risk of leaving AGAINST MEDICAL ADVICE. She is able to verbalize those risks. Patient has the capacity to make that decision. Patient will be discharged on Reglan and cephalexin to be taken as prescribed. She may take Tylenol for pain. She is to return for increasing pain or fever. I interpreted all labs. Renal ultrasound showed no evidence of hydronephrosis. OB ultrasound showed a live 17-week and 2-day fetus in cephalad position. Patient data External records reviewed:: [facility] previous records (Per chart review, patient was seen here on 11/28/24 for pneumonia.) Clinical information provided by:: patient Social determinants that could affect healthcare access:: none Patient has the following chronic illnesses:: asthma How is presenting disease/condition affected by chronic disease/condition?: uneffected by Evaluation data The following diagnostics were reviewed and interpreted by me:: lab results and radiology exam(s) Lab and/or radiology exams considered but not ordered:: none Interpretation Summary: [facility] Signed Patient: JESSICA WALSH Record#: [id number] Birthdate: 1990 Age/Sex: 34 / F Location: [facility] Attending Dr: Ordering Physician: Paola Cortes Date of Service: 01/07/25 Procedure(s): US gall bladder Accession Number(s): [id number] cc: Efrain York MD; Shaheen Hammond MD; Paola Cortes~ Examination: Abdomen sonogram, Limited Date and time of exam: December, 2145 hours INDICATIONS: Pelvic pain today, 18-week by history Technique: Real-time lucas scale transabdominal sonographic images of the upper abdomen obtained. Findings: Multiple gallstones Gallbladder wall 0.38 cm no edema Common bile duct enlarged 0.9 cm Pancreatic head 2.7 cm Liver 19 cm fatty infiltration Normal hepatopetal portal venous flow Patent IVC IMPRESSION: Cholelithiasis Abnormally enlarged common bile duct 0.9 cm, consider MRCP follow-up to exclude common bile duct stones Dictated By: Shaheen Hammond MD Signed By: <Electronically signed by Shaheen Hammond MD in OV> 01/07/252 [facility] Signed Patient: JESSICA WALSH [facility]. Record#: [id number] Birthdate: 1990 Age/Sex: 34 / F Location: [facility] Attending Dr: Ordering Physician: Paola Cortes Date of Service: 01/07/25 Procedure(s): US OB >= 14 weeks Fetus Accession Number(s): [id number] cc: Efrain York MD; Shaheen Hammond MD; Paola Cortes~ Examination: Complete OB ultrasound greater than 14 weeks Date and time of exam: January 07, 2025, 2152 hours INDICATIONS: Right upper abdomen and back pain pelvic pain today Findings: Viable intrauterine single fetus with single amniotic sac presentation cephalic Cardiac motion 137 bpm Placenta anterior grade 2 Umbilical cord insertion seen Amniotic fluid volume adequate spine posterior Cervix 3.7 cm Right ovary 3.2 cm arterial flow Left ovary 2.7 cm arterial flow. Composite estimated gestational age based on BPD, head circumference, abdominal circumference, femur length is 17 weeks 2 days Estimated weight 191 g. Survey of intracranial anatomy, spinal anatomy, abdominal anatomy, four-chamber heart performed with no abnormalities identified. Impression: Viable intrauterine gestation cephalic presentation. Dictated By: Shaheen Hammond MD Signed By: <Electronically signed by Shaheen Hammond MD in OV> 01/07/25 2223 [facility] Signed Patient: JESSICA WALSH [facility]. Record#: [id number] Birthdate: 1990 Age/Sex: 34 / F Location: [facility] Attending Dr: Ordering Physician: Jarvis Mccollum DO Date of Service: 01/07/25 Procedure(s): US renal BI Accession Number(s): [id number] cc: Efrain York MD; Shaheen Hammond MD; Jarvis Mccollum DO~ Examination: Retroperitoneal ultrasound, complete Technique: Multiple high resolution grayscale images of the retroperitoneum obtained, including kidneys and bladder. Exam date and time: January 07, 2025 1020 hours INDICATIONS: Back pain flank pain abdominal pain today FINDINGS: Right kidney 12.0 cm renal cortex 1.2 cm Left kidney 11.4 cm renal cortex 1.4 cm No hydronephrosis or renal calculi No visualization of the bladder IMPRESSION: Normal kidneys Dictated By: Shaheen Hammond MD Signed By: <Electronically signed by Shaheen Hammond MD in OV> 01/07/25 2314 Medications / Prescriptions Medications or Prescriptions considered but not ordered:: none Medication administrations:: Medication Administration History Sodium Chloride (Ns) 1,000 mls @ 999 mls/hr IV .Q1H1M ONE Stop: 01/08/25 00:15 Last Admin: 01/07/25 23:20 Dose: 999 mls/hr Documented By: EE Ceftriaxone Sodium/Dextrose (Rocephin/D5w 1gm Iv Premix) 1 gm in 50 mls @ 100 mls/hr IV X1 ONE Stop: 01/08/25 00:05 Discontinued Medications Acetaminophen (Acetaminophen 325 Mg Tablet) 650 mg PO X1 ONE Stop: 01/07/25 23:05 Last Admin: 01/07/25 23:14 Dose: 650 mg Documented By: EE Metoclopramide HCl (Metoclopramide Inj 5 Mg/Ml Vial 2 Ml) 10 mg IVP X1 ONE; Protocol Stop: 01/07/25 22:34 Last Admin: 01/07/25 23:15 Dose: 10 mg Documented By: EE Morphine Sulfate (Morphine Sulf Inj 4 Mg/Ml Vial) 4 mg IVP X1 ONE Stop: 01/07/25 22:14 Last Admin: 01/07/25 23:06 Dose: Not Given Documented By: EE Non-Admin Reason: Patient Refused see above Consultations Consultation(s) initiated? (list below): No Diagnosis Differential diagnosis abdominal pain: other (See MDM) Most likely diagnosis given after review of the tests above:: see clinical impression below Admission Indicated Admission indicated?: not indicated Admission Request Was there a request for admission?: No Disposition Plan Disposition Plan: Discharge Discharge Attestation Discharge Attestation: The patient and all family members were given an opportunity to ask questions and understood the discharge instructions. Discharge instructions specifically effects, indications for sooner follow up or return to the emergency department, and the expected course of current diagnosis. Patient condition: Stable Discharge Plan Plan Patient Disposition: Left Against Medical Advice Prescriptions/Referrals Prescriptions/Med Rec: New cephalexin 500 mg capsule 1,000 mg PO BID 7 Days Qty: 28 0RF metoclopramide HCl [Reglan] 10 mg tablet 10 mg PO Q6H PRN (Reason: nausea and vomiting) Qty: 20 0RF No Action Classic 28 mg iron- 800 mcg tablet 1 tab PO DAILY 90 Days Qty: 90 6RF pantoprazole 40 mg tablet,delayed release (DR/EC) 40 mg PO QDAY Patient Comments: take 1 tablet by mouth once daily cefdinir 300 mg capsule 300 mg PO BID Qty: 14 0RF valacyclovir 1 gram Tablet 1,000 mg PO BID Referrals: Efrain York MD [Primary Care Provider, Family Practice] - In 1 week Problem List Clinical Impression: Gallstone, , UTI (urinary tract infection) Patient/Caregiver Discharge Instructions Education Materials: Preg 2nd Trimester, ED Gallstones with Biliary Colic, ED CYSTITIS Female Adult Additional Instructions: Take the medication as prescribed. Keep well-hydrated. Return for increasing pain or fever. You may take 650 mg of Tylenol every 4 hours as needed for pain. Print Language: Czech
--- NOTE | 2025-01-07 22:12 | XR_ITS ---
Examination: Retroperitoneal ultrasound, complete Technique: Multiple high resolution grayscale images of the retroperitoneum obtained, including kidneys and bladder. Exam date and time: January 07, 2025 1020 hours INDICATIONS: Back pain flank pain abdominal pain today FINDINGS: Right kidney 12.0 cm renal cortex 1.2 cm Left kidney 11.4 cm renal cortex 1.4 cm No hydronephrosis or renal calculi No visualization of the bladder IMPRESSION: Normal kidneys
[2025-01-07 22:14] VITALS: BP 114/67; PULSE 65; RESP 18; O2SAT 99
[2025-01-07 22:19] LABS: Alanine Aminotransferase 23 U/L (10-49); Albumin, Serum 4.1 gm/dL (3.5-5.0); Albumin/Globulin Ratio 2.2 (1.2-2.2); Alkaline Phosphatase 120 U/L (46-116); Anion Gap 11 (7-16); Aspartate Amino Transferase 55 U/L (0-34); BUN/Creatinine Ratio 12 Ratio (12-20); Bilirubin,Total 0.8 mg/dL (0.3-1.2); Blood Urea Nitrogen 7 mg/dL (9-23); Calcium 8.6 mg/dL (8.3-10.6); Calcium (Corrected) 8.6 mg/dL (8.5-10.1); Carbon Dioxide 19.5 mMol/L (20.0-31.0); Chloride 111 mMol/L (98-107); Creatinine (Component) 0.6 mg/dL (0.6-1.3); Estimated Creatinine Clearance 140.3 mL/min (>60); Globulin 1.9 gm/dL (2.3-3.5); Glucose 107 mg/dL (74-106); Lipase 35 U/L (12-53); Osmolality,Calculated 279 (275-295); Potassium 4.1 mMol/L (3.4-5.1); Sodium 141 mMol/L (136-145); Total Protein 6.0 gm/dL (5.7-8.2); eGFR > 60 See Note
[2025-01-07 22:37] LABS: Collection Type, Urine Voided
[2025-01-07 22:43] LABS: Amorphous Crystals,Urine Present (Absent); Bacteria,Urine 1+; Bilirubin,Urine Negative (Negative); Blood,Urine Negative (Negative); Clarity,Urine Turbid (Clear/Hazy); Color,Urine Yellow (Lt Yel-Yel); Glucose, Urine Negative (Negative); Ketones,Urine 1+ (Negative); Leukocyte Esterase,Urine Positive (Negative); Nitrite,Urine Negative (Negative); PH,Urine 7.5 (5.0-7.0); Protein,Urine 1+ (Neg - Trace); RBC,Urine 8 /hpf (0-3); Specific Gravity,Urine 1.033 (1.001-1.035); Squamous Epithelial Cell,Urine 20 /hpf (0-5); Urobilinogen,Urine 8.0 mg/dL (0.0-1.0); WBC,Urine 7 /hpf (0-5)
[2025-01-07 22:51] LABS: Beta HCG,Quantitative 15858 mIU/mL (<5.0)
[2025-01-07] MEDS: ACETAMINOPHEN 325 MG TABLET 650 MG PO (23:14)
[2025-01-07] MEDS: METOCLOPRAMIDE INJ 5 MG/ML VIAL 2 ML 10 MG IVP (23:15)
[2025-01-07] MEDS: SODIUM CHLORIDE 0.9% 1000 ML 1,000 ML 999 ML IV (23:20)
[2025-01-07] MEDS: cefTRIAXone/D5w 1gm IV premix 1 GM/50 ML BAG IV (23:57)
[2025-01-08 00:54] VITALS: BP 112/62; PULSE 78; RESP 18; TEMP 36.7
== END 2025-01-08 01:05 | disposition left against medical advice (07) ==
PROVIDERS: Nurse Practitioner Family; Emergency Provider Emergency Medicine; PCP Family Medicine
DX: O23.12 Infections of bladder in pregnancy, second trimester (principal); K80.70 Calculus of gallbladder and bile duct without cholecystitis without obstruction; O23.42 Unspecified infection of urinary tract in pregnancy, second trimester; O26.612 Liver and biliary tract disorders in pregnancy, second trimester; Z3A.18 18 weeks gestation of pregnancy
CPT/HCPCS: 36415; 76705; 76770; 76805; 80053; 81001; 83690; 84702; 85025; 86900; 86901; 96361; 96365; 96375; 99284; J0696; J2765; J7030; A9270

== ENCOUNTER 2025-01-11 11:14 | Outpatient (AMB) | payer MEDICAID, SELFPAY ==
[2025-01-11 11:51] VITALS: BP 128/80; PULSE 97; RESP 18; TEMP 36.7; O2SAT 98; BMI 33.3
--- NOTE | 2025-01-11 11:51 | OBCLNT_ITS ---
Vital Signs 01/11/25 11:51 Height 1.63 m Height Method Stated Weight 88.677 kg Weight Measurement Method Standing Scale BMI 33.3 BP 128/80 Blood Pressure Source Automatic Cuff Blood Pressure Location Left Upper Arm Position Sitting Respiration 18 Pulse 97 Pulse Source Monitor Temp 98.1 F Temp Source Oral Pulse Oximetry (%) 98 Oxygen Delivery Method Room Air Allergies/Home Meds Allergies & Medications Allergies doxycycline Allergy (Severe, Verified 01/11/25 11:52) Dizziness ibuprofen Allergy (Severe, Verified 01/11/25 11:52) Abdominal Pain whey Allergy (Severe, Verified 01/11/25 11:52) Swelling of Lip/Tongue/Throat Medication Reconciliation valacyclovir 1 gram tablet 1,000 mg PO BID 08/05/23 [History Confirmed 01/11/25] pantoprazole 40 mg tablet,delayed release 40 mg PO QDAY 10/07/23 [History Confirmed 01/11/25] cefdinir 300 mg capsule 300 mg PO BID #14 caps 11/28/24 [Rx Confirmed 01/11/25] vits no.126-ferrous fum 28 mg iron-folic acid 800 mcg tablet (Classic ) 1 tab PO DAILY 90 days #90 tabs 11/30/24 [Rx Confirmed 01/11/25] cephalexin 500 mg capsule 1,000 mg (2 x 500 mg) PO BID 7 days #28 caps 01/07/25 [Rx Confirmed 01/11/25] metoclopramide HCl 10 mg tablet (Reglan) 10 mg PO Q6H PRN nausea and vomiting #20 tabs 01/07/25 [Rx Confirmed 01/11/25] Immunizations Immunizations Flu Vaccine in the Last 12 Months: No Flu Vaccine Exclusion Criteria: Refused by Patient Care OB Visit Log OB Flowsheet Initial Weight: Not Recorded Date -?-?-?-?-?-?-?-?-?-?-?-?- EGA Weight BP Alb Glu CTX Pres Fundal ht FHR Mov Dilation Station Effacement Hx Notes Visit Note 11/30/24 -?-?-?-?-?-?-?-?-?-?-?-?- 11w 5d 86.409 kg 123/78 01/11/25 -?-?-?-?-?-?-?-?-?-?-?-?- 17w 5d 88.677 kg 128/80 17 147 active VIRY Calculator Estimated Delivery Date Method Current WG Current Estimate 06/16/25 LMP (Certain) 18w 0d Other Estimates 06/15/25 Ultrasound #1 18w 1d Comments: [facility] [address] [place] [address] [facility] Signed Patient: JESSICA WALSH Record#: [id number] Birthdate: 1990 Age/Sex: 34 / F Location: [facility] Attending Dr: Ordering Physician: Paola Cortes Date of Service: 01/07/25 Procedure(s): US OB >= 14 weeks Fetus Accession Number(s): [id number] cc: Efrain York MD; Shaheen Hammond MD; Paola Cortes~ Examination: Complete OB ultrasound greater than 14 weeks Date and time of exam: January 07, 2025, 2152 hours INDICATIONS: Right upper abdomen and back pain pelvic pain today Findings: Viable intrauterine single fetus with single amniotic sac presentation cephalic Cardiac motion 137 bpm Placenta anterior grade 2 Umbilical cord insertion seen Amniotic fluid volume adequate spine posterior Cervix 3.7 cm Right ovary 3.2 cm arterial flow Left ovary 2.7 cm arterial flow. Composite estimated gestational age based on BPD, head circumference, abdominal circumference, femur length is 17 weeks 2 days Estimated weight 191 g. Survey of intracranial anatomy, spinal anatomy, abdominal anatomy, four-chamber heart performed with no abnormalities identified. Impression: Viable intrauterine gestation cephalic presentation. Dictated By: Shaheen Hammond MD Signed By: <Electronically signed by Shaheen Hammond MD in OV> 01/07/252222 DD/ 22 TD/TT: 01/07/252222 Nib Inspector: SURAJ Notes Visit Date: 01/11/25 Last Updated by: Lillian Ramirez MD LMP 09/09/2024 and is 17.5 weeks today / US on 01/07/2025 c/w LMP dating h/o an immune deficiency disorder and is prone to infections declined Pap smear as wants to minimize infection counselled on importance of pap chon 3 years does not take vaccines H/O HSV and takes acyclovir when gets outbreaks/ will start Acyclovir at 32 weeks for suppression First trimester ob initial and NIPT reviewed / all normal except Hb is 10/ O positive / taking oral iron / Lupus anticogulant negative / Order MSAFP / refer to perinatology for anatomy scan / follow up in 4 weeks Visit Date: 11/30/24 Last Updated by: Lillian Ramirez MD Us bedside c/w 12.2 weeks on CRL and FHRate present. active fetus LMP 09/09/2024 and is 11.5 weeks h/o an immune deficiency disorder and is prone to infections declined Pap smear as wants to minimize infection counselled on importance of pap chon 3 years does not take vaccines H/O HSV and takes acyclovir when gets outbreaks First trimester ob initial and NIPT ordered follow up 4 weeks Office Procedures OBC Clinic LOC & Office Proc's Nursing/Assessment Patient Status: Established Patient OB Clinic Nursing Assessment: Medication Reconciliation, Update PMH in EMR and Vital Signs OB Clinic Coordination of Care: Complex Care and Chronic Disease 1-5, Consent,records obtained, informed consent, Education Simp Pt/Fam, 1 Ins Authorization, Lab and Imaging orders, Results/Orders obtained and Staff clarify orders Special Needs: Heart tones Established Patient Charge Established Patient Point Assignment: 150 Established Patient Point Charge: EP Level 4 (120-155) Assessment & Plan Diagnosis / Problem List (1) Common variable immunodeficiency: Status: Acute (2) with 17 completed weeks gestation: Status: Acute Plan: MSAFP ordered and anatomy scan (3) High risk case management patient in second trimester: Status: Acute Plan: see below Assessment and Plan: order MSAFP / take oral iron / cannot take vaccines due to immune deficiency precvious still at 20 weeks Additional Plan LMP 09/09/2024 and is 17.5 weeks today / US on 01/07/2025 c/w LMP dating h/o an immune deficiency disorder and is prone to infections declined Pap smear as wants to minimize infection counselled on importance of pap chon 3 years does not take vaccines H/O HSV and takes acyclovir when gets outbreaks/ will start Acyclovir at 32 weeks for suppression First trimester ob initial and NIPT reviewed / all normal except Hb is 10/ O positive / taking oral iron / Lupus anticogulant negative / Order MSAFP / refer to perinatology for anatomy scan / follow up in 4 weeks Visit Date: 11/30/24?? Last Updated by: Lillian Ramirez MD Us bedside c/w 12.2 weeks on CRL and FHRate present. active fetus LMP 09/09/2024 and is 11.5 weeks h/o an immune deficiency disorder and is prone to infections declined Pap smear as wants to minimize infection counselled on importance of pap chon 3 years does not take vaccines H/O HSV and takes acyclovir when gets outbreaks First trimester ob initial and NIPT ordered follow up 4 weeks Follow Up: 4 Weeks
== END 2025-01-11 12:25 | disposition home or self-care (01) ==
LOC: HODSOBC 11:14
PROVIDERS: PCP Family Medicine; Referring Provider Family Medicine; Supervising Provider Obstetrics & Gynecology; Visit Provider Obstetrics & Gynecology
DX: O09.892 Supervision of other high risk pregnancies, second trimester (principal); O99.112 Other diseases of the blood and blood-forming organs and certain disorders involving the immune mechanism complicating pregnancy, second trimester; D83.9 Common variable immunodeficiency, unspecified; Z3A.17 17 weeks gestation of pregnancy; Z88.1 Allergy status to other antibiotic agents; Z88.6 Allergy status to analgesic agent; Z91.018 Allergy to other foods
CPT/HCPCS: 99214; G0463